=== PATIENT | female | born 2000 | race American Indian/Alaskan Native ===

== ENCOUNTER 2019-02-26 02:17 | Emergency (ER) | payer BC ==
[2019-02-26 02:40] VITALS: BP 132/86
--- NOTE | 2019-02-26 04:38 | Emergency Department Report ---
ED General Adult HPI - General Chief complaint: Back Pain/Injury Stated complaint: RIB PAIN RIGHT SIDE Time Seen by Provider: 02/26/19 04:30 Source: patient Mode of arrival: Ambulatory Limitations: No Limitations - History of Present Illness Initial comments: 18-year-old -[place] female comes in for right side with pain 2 days. Patient states she took ibuprofen 800 mg at midnight. Patient denies any control, no sorthness of breathing, no trauma. She does admit to increased pain with deep breath. Patient denies any fever chills. Onset/Timin -: days(s) Location: chest, back - Related Data Previous Rx's Medication Instructions Recorded Last Taken Type Ibuprofen [Motrin 600 MG tab] 600 mg PO Q8H PRN #30 tablet 02/26/19 Unknown Rx Allergies Allergy/AdvReac Type Severity Reaction Status Date / Time No Known Allergies Allergy Unverified 02/26/19 04:33 ED Review of Systems ROS: Stated complaint: RIB PAIN RIGHT SIDE Other details as noted in HPI ED Past Medical Hx - Past Medical History Previous Medical History?: No - Surgical History Past Surgical History?: No - Social History Smoking Status: Current Every Day Smoker Substance Use Type: Alcohol, Marijuana - Medications Home Medications: Home Medications Medication Instructions Recorded Confirmed Last Taken Type Ibuprofen [Motrin 600 MG tab] 600 mg PO Q8H PRN #30 tablet 02/26/19 Unknown Rx ED Physical Exam - General Limitations: No Limitations ED Course Vital Signs 02/26/19 02:24 Temperature 98.3 F Pulse Rate 102 H Respiratory 16 Rate Blood Pressure 132/86 O2 Sat by Pulse 100 Oximetry ED Medical Decision Making - Lab Data Result diagrams: 02/26/19 05:27 - Radiology Data Radiology results: report reviewed Patient: JOLENE RAZO MR#: [id number] : 2000 Acct:[id number] Age/Sex: 18 / F ADM Date: 02/26/19 Loc: ED Attending Dr: Ordering Physician: PAN MILLER Date of Service: 02/26/19 Procedure(s): CT angio chest Accession Number(s): [id number] cc: PAN MILLER PROCEDURE: CT ANGIO CHEST TECHNIQUE: Computerized tomographic angiography of the chest was performed after the IV injection of iodinated nonionic contrast including image processing. The image data was postprocessed using 2-dimensional multiplanar reformatted (MPR) and 3-dimensional (MIP and/or volume rendered) techniques. Automated exposure control, adjustment of mA and/or kV according to patient size, or iterative reconstruction dose optimization techniques were utilized. CT DOSE LENGTH PRODUCT: 441.7 mGycm HISTORY: pleuritic chest pain with elevated d-dimer COMPARISONS: None . FINDINGS: Normal caliber main pulmonary artery. Well opacified pulmonary arterial tree. No pulmonary embolism. No pericardial effusion. Thoracic aorta is normal in course and caliber. No periaortic fluid or stranding. No pneumothorax, effusion or focal airspace disease. The central airways are patent. No bronchiectasis. Imaged portion of the upper abdomen is unremarkable. The superficial soft tissues are unremarkable. No acute bony abnormality or wo rrisome osseous lesions identified. IMPRESSION: No pulmonary embolism or other acute finding. This document is electronically signed by Akin Rashid MD., February 26 2019 08:43:27 AM ET Transcribed By: SOLEDAD Dictated By: AKIN RASHID MD Electronically Authenticated By: AKIN RASHID MD Signed Date/Time: 02/26/1945 DD/ 6 TD/TT: 02/26/19726 Critical care attestation.: If time is entered above; I have spent that time in minutes in the direct care of this critically ill patient, excluding procedure time. ED Disposition Clinical Impression: Chest wall tenderness Disposition: DC-01 TO HOME OR SELFCARE Is pt being admited?: No Does the pt Need Aspirin: No Condition: Stable Instructions: Chest Pain (ED), Costochondritis (ED) Additional Instructions: Pain medication as prescribed. Follow up with her primary care provider if symptoms persist or gets worse. Prescriptions: Ibuprofen [Motrin 600 MG tab] 600 mg PO Q8H PRN #30 tablet PRN Reason: Pain Referrals: CULLEN BENSON MD [Primary Care Provider] - 3-5 Days
--- NOTE | 2019-02-26 05:00 | XRay Report ---
PROCEDURE: XR RIBS UNI W PA CHEST 3+V RT TECHNIQUE: Right rib radiographs, 3 views of the ribs, including PA chest. HISTORY: right-sided chest and rib pain COMPARISONS: None . FINDINGS: Heart: Normal . Mediastinum/Vessels: Normal . Lungs: Normal . Pleural space: Normal . Pneumothorax: None . Bony thorax/ribs: No acute or displaced rib fractures. IMPRESSION: No acute abnormality of the chest and right ribs. This document is electronically signed by Ernesto Childers MD., February 26 2019 05:57:47 AM ET
[2019-02-26 05:48] LABS: Basophils % (Auto) 0.5 % (0.0-1.8); Eosinophils # (Auto) 0.3 K/mm3 (0.0-0.4); Eosinophils % (Auto) 3.2 % (0.0-4.3); Hematocrit 31.7 % (30.3-42.9); Hemoglobin 10.5 gm/dl (10.1-14.3); Lymphocytes # (Auto) 2.3 K/mm3 (1.2-5.4); Lymphocytes % (Auto) 29.3 % (13.4-35.0); Mean Corpuscular HGB Conc 33 % (30-34); Mean Corpuscular Volume 87 fl (79-97); Monocytes # (Auto) 0.6 K/mm3 (0.0-0.8); Platelet Count 418 K/mm3 (140-440); Red Blood Count 3.66 M/mm3 (3.65-5.03); Red Cell Distribution Width 14.9 % (13.2-15.2)
[2019-02-26 06:07] LABS: Alanine Aminotransferase 6 units/L (7-56); Albumin 3.7 g/dL (3.9-5); BUN/Creatinine Ratio 14; Blood Urea Nitrogen 7 mg/dL (7-17); Calcium 9.4 mg/dL (8.4-10.2); Hemolysis Index 3
--- NOTE | 2019-02-26 07:45 | Cat Scan Report ---
PROCEDURE: CT ANGIO CHEST TECHNIQUE: Computerized tomographic angiography of the chest was performed after the IV injection of iodinated nonionic contrast including image processing. The image data was postprocessed using 2-di mensional multiplanar reformatted (MPR) and 3-dimensional (MIP and/or volume rendered) techniques. Au tomated exposure control, adjustment of mA and/or kV according to patient size, or iterative reconstr uction dose optimization techniques were utilized. CT DOSE LENGTH PRODUCT: 441.7 mGycm HISTORY: pleuritic chest pain with elevated d-dimer COMPARISONS: None . FINDINGS: Normal caliber main pulmonary artery. Well opacified pulmonary arterial tree. No pulmonary embolism . No pericardial effusion. Thoracic aorta is normal in course and caliber. No periaortic fluid or stranding. No pneumothorax, effusion or focal airspace disease. The central airways are patent. No bronchiectasi s. Imaged portion of the upper abdomen is unremarkable. The superficial soft tissues are unremarkable. No acute bony abnormality or worrisome osseous lesions identified. IMPRESSION: No pulmonary embolism or other acute finding. This document is electronically signed by Akin Woods MD., February 26 2019 08:43:27 AM ET
== END 2019-02-26 08:20 | disposition home or self-care (01) ==
LOC: ED 02:17
DX: R07.81 Pleurodynia (principal); F17.200 Nicotine dependence, unspecified, uncomplicated; F12.90 Cannabis use, unspecified, uncomplicated
CPT/HCPCS: 36415; 71101; 71275; 80053; 84702; 85025; 85379; 99284; Q9967